=== PATIENT | male | born 1940 | race Hispanic/Latino ===

== ENCOUNTER 2018-01-21 05:51 | Day surgery (SDC) | payer MEDICARE ==
[2018-01-21] MEDS ORDERED: NACL 0.9% 1000 ML 1,000 ML IV SCH (06:00)
[2018-01-21] MEDS ORDERED: ANCEF/STERILE WATER 2 GM/20 ML 2 GM/20 ML SYRINGE IV NR (06:00)
[2018-01-21] MEDS ORDERED: PROTAMINE SULFATE ONE (06:25)
[2018-01-21] MEDS ORDERED: MARCAINE 0.5% 30 ML INFILTRATI ONE (06:25)
[2018-01-21] MEDS ORDERED: XYLOCAINE 1%/ EPI 1:100,000 INFILTRATI ONE (06:25)
[2018-01-21] MEDS ORDERED: HEPARIN 10,000 UNITS/10 ML ONE (06:25)
[2018-01-21] MEDS ORDERED: NACL 0.9% 500 ML 500 ML ONE (06:25)
[2018-01-21] MEDS ORDERED: SODIUM BICARBONATE ONE (06:25)
[2018-01-21 07:08] LABS: Basophils % (Auto) 0.7 % (0.0-1.8); Eosinophils # (Auto) 0.2 K/mm3 (0.0-0.4); Eosinophils % (Auto) 4.4 % (0.0-4.3); Hematocrit 32.9 % (35.5-45.6); Hemoglobin 11.4 gm/dl (11.8-15.2); Lymphocytes # (Auto) 0.9 K/mm3 (1.2-5.4); Mean Corpuscular HGB Conc 35 % (32-34); Mean Corpuscular Hemoglobin 34 pg (28-32); Mean Corpuscular Volume 97 fl (84-94); Monocytes # (Auto) 0.3 K/mm3 (0.0-0.8); Monocytes % (Auto) 6.4 % (0.0-7.3); Platelet Count 194 K/mm3 (140-440); Red Blood Count 3.38 M/mm3 (3.65-5.03); Red Cell Distribution Width 15.2 % (13.2-15.2)
[2018-01-21] MEDS ORDERED: SUBLIMAZE IV PRN (07:46)
[2018-01-21] MEDS ORDERED: ZOFRAN IV PRN (07:46)
--- NOTE | 2018-01-21 07:46 | Anesthesia Day of Surgery ---
Anesthesia Day of Surgery - Day of Surgery Patient Examined: Yes Patient H&P Reviewed: Yes Patient is NPO: Yes
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
[2018-01-21] MEDS ORDERED: HEPARIN 10,000 UNITS/10 ML 2,000 UNIT in NACL 0.9% 500 ML 500 ML IR ONE (08:14)
[2018-01-21] MEDS ORDERED: NACL 0.9% 500 ML IV ONE (09:14)
[2018-01-21] MEDS ORDERED: NACL 0.9% IR ONE (09:14)
[2018-01-21] MEDS ORDERED: MARCAINE 0.25% INFILTRATI ONE (09:14)
[2018-01-21] MEDS ORDERED: MARCAINE 0.5% INFILTRATI ONE (09:14)
[2018-01-21] MEDS ORDERED: HEPARIN 10,000 UNITS/10 ML IV ONE (09:14)
--- NOTE | 2018-01-21 10:34 | Operative Report ---
Operative Report Operative Report: Operative note: Date: 01/21/2018 Preoperative diagnosis: CKD 5 with need of HD initiation Postoperative diagnosis: Same. Operation: creation of left Oly AV fistula Surgeon: Kourtney Briggs. Asst.: None Anesthesia: Gen. EBL: Minimal Findings: Good size radial artery, no plaque Indications: 77-year-old gentleman is in need of dialysis to be started shortly. He was scheduled for creation of permanent access. Vein mapping was performed and showed good size cephalic vein throughout. Patient was explained the risks, benefits and alternatives of procedure, he agreed and signed informed consent. Operative details: The ultrasound was performed identifying cephalic vein. It was compressible is good size throughout its length from the wrist level. His cephalic vein was adequate distance from radial artery. It was necessary to perform 2 incisions separately was, I'll cephalic vein toward the radial artery. Those were marked. Incision was made using 15 blade initially over marked area of distal cephalic vein. It was carried down with electrocautery until long segment of cephalic vein dissected. There was no branches identified. Next incision was made over radial artery. It was carried down with electrocautery Cephalic vein was transected distally and was ligated distally with 3-0 silk. It was irrigated with heparinized saline with olive-tipped syringe. It was tunneled using Salud clamp toward the artery and flushed with heparin again. Vein was open to create large area for anastomosis. Proximally it was controlled with his bulldog. Patient was heparinozed. Distal and proximal control for radial artery was gained with vessel loops. Arteriotomy was created with 11 blade and extended with Collier scissors. Anastomosis was created was running 6-0 Prolene. When the artery was unclamped was identified good arterial pulse and thrill in the cephalic vein. Hemostasis was achieved with electrocautery and wound was closed in 2 layers with 3-0 Vicryl and 4-0 Monocryl. Dermabond glue applied. Needle and sponge counts were correct 2. Patient tolerated procedure well and was transferred to PACU in stable condition.
--- NOTE | 2018-01-21 10:38 | Short Stay Summary ---
Short Stay Documentation Date of service: 01/21/18 - History H&P: obtained from office - Allergies and Medications Current Medications: Allergies No Known Allergies Allergy (Verified 02/20/13 07:01) Home Medications Medication Instructions Recorded Confirmed Last Taken Type Aspirin [Aspirin TAB] 325 mg PO QDAY 02/20/13 01/21/18 01/20/18 History Simvastatin 20 mg PO QDAY 02/20/13 01/21/18 01/20/18 History Finasteride [Proscar] 5 mg PO DAILY 04/02/17 01/21/18 01/20/18 History Amiodarone [Cordarone 200 MG TAB] 100 mg PO QDAY 01/14/18 01/21/18 01/20/18 History Furosemide [Lasix TAB] 20 mg PO QDAY 01/14/18 01/21/18 01/20/18 History NIFEdipine [Nifedipine ER] 30 mg PO BID 01/14/18 01/21/18 01/21/18 04:30 History Oxybutynin [Ditropan] 5 mg PO TID 01/14/18 01/21/18 01/20/18 History Pantoprazole [Protonix] 40 mg PO QDAY 01/14/18 01/21/18 01/20/18 History Lactulose 15 ml PO PRN PRN 01/21/18 01/21/18 01/19/18 History Active Medications Fentanyl (Sublimaze) 50 mcg IV Q5MIN PRN PRN Reason: Pain , Severe (7-10) Stop: 01/21/18 23:59 Cefazolin Sodium (Ancef/Sterile Water 2 Gm/20 Ml) 2 gm in 20 mls @ 80 mls/hr IV PREOP NR; Protocol Stop: 01/21/18 23:59 Sodium Chloride (Nacl 0.9% 1000 Ml) 1,000 mls @ 42 mls/hr IV DIRECT NIKI Last Admin: 01/21/18 06:50 Dose: 42 mls/hr Ondansetron HCl (Zofran) 4 mg IV ONCE PRN PRN Reason: Nausea And Vomiting - Physical exam Lungs: Clear to auscultation Heart: Murmur Rectal Exam: deferred Extremities: pulses intact - Brief post op/procedure progress note Date of procedure: 01/21/18 Pre-op diagnosis: CKD 5 in need of initiation of HD in the near future Post-op diagnosis: same Procedure: creation of left oleg AVF Anesthesia: GETA Findings: good radial artery, no plaque Surgeon: BRAYAN CLIFTON Estimated blood loss: minimal Pathology: none Condition: stable - Disposition Condition at discharge: Good Disposition: DC-01 TO HOME OR SELFCARE Short Stay Discharge Plan Diet: renal Wound: open to air Special Instructions: no heavy lifting Follow up with: OLGA LIDIA MILLER MD [Primary Care Provider] - 7 Days BRAYAN CLIFTON DO [Staff Physician] - 10 Days Prescriptions: HYDROcodone/APAP 5-325 [[place] 5/325] 1 each PO Q6HR PRN #14 tablet PRN Reason: Pain , Severe (7-10)
[2018-01-21 11:46] VITALS: BP 126/66
[2018-01-21] MEDS ORDERED: SUBLIMAZE ONE (13:34)
[2018-01-21] MEDS ORDERED: DIPRIVAN 10 MG/ML IV ONE (13:34)
[2018-01-21] MEDS ORDERED: XYLOCAINE MPF 2% ONE (13:35)
[2018-01-21] MEDS ORDERED: NEO SYNEPHRINE/NS Syringe(OR USE) IV ONE (13:35)
[2018-01-21] MEDS ORDERED: ZOFRAN ONE (13:35)
== END 2018-01-21 12:17 | disposition home or self-care (01) ==
LOC: OR 05:51
PROVIDERS: ATTEND Surgery Vascular Surgery
DX: I12.0 Hypertensive chronic kidney disease with stage 5 chronic kidney disease or end stage renal disease (principal); N18.6 End stage renal disease; I48.2 Chronic atrial fibrillation; E78.00 Pure hypercholesterolemia, unspecified; K21.9 Gastro-esophageal reflux disease without esophagitis; M17.10 Unilateral primary osteoarthritis, unspecified knee; I25.10 Atherosclerotic heart disease of native coronary artery without angina pectoris; Z79.82 Long term (current) use of aspirin; Z79.899 Other long term (current) drug therapy; Z99.2 Dependence on renal dialysis; Z98.42 Cataract extraction status, left eye; Z72.89 Other problems related to lifestyle; Z96.651 Presence of right artificial knee joint; Z87.891 Personal history of nicotine dependence; Z98.890 Other specified postprocedural states
CPT/HCPCS: 36415; 36821; 80048; 85025; J0690; J1644; J2370; J2405; J2704; J3010; J7030; J7040; J2720

== ENCOUNTER 2018-02-12 19:39 | Inpatient (IN) | payer MEDICARE ==
[2018-02-12 21:09] LABS: Basophils % (Auto) 0.1 % (0.0-1.8); Eosinophils % (Auto) 0.1 % (0.0-4.3); Hematocrit 31.9 % (35.5-45.6); Hemoglobin 11.2 gm/dl (11.8-15.2); Lymphocytes # (Auto) 0.3 K/mm3 (1.2-5.4); Lymphocytes % (Auto) 3.2 % (13.4-35.0); Mean Corpuscular HGB Conc 35 % (32-34); Mean Corpuscular Hemoglobin 34 pg (28-32); Mean Corpuscular Volume 98 fl (84-94); Monocytes # (Auto) 0.5 K/mm3 (0.0-0.8); Monocytes % (Auto) 6.6 % (0.0-7.3); Red Blood Count 3.26 M/mm3 (3.65-5.03); Red Cell Distribution Width 16.2 % (13.2-15.2)
[2018-02-12 21:25] LABS: Albumin 3.3 g/dL (3.9-5); Calcium 8.8 mg/dL (8.4-10.2)
[2018-02-12 21:50] LABS: Platelet Count 87 K/mm3 (140-440)
[2018-02-12] MEDS ORDERED: NACL 0.9% 1000 ML 1,000 ML IV ONE (22:12)
--- NOTE | 2018-02-12 22:50 | Emergency Department Report ---
- General Chief complaint: Fall Stated complaint: WEAKNESS,COUGH Time Seen by Provider: 02/12/18 21:51 Source: patient, old records reviewed Mode of arrival: Ambulatory Limitations: Physical Limitation - History of Present Illness Initial comments: 77-year-old male with a history of chronic renal insufficiency (not currently on hemodialysis), hypertension, GERD, and previous atrial fibrillation in the hospital with generalized weakness and 2 falls today. Patient states his knees gave out secondary to weakness and he fell down to the floor. He was able to break his fall and denies head injury or LOC. He scuffed his knees and face while trying to get off the floor. He denies headache, chest pain, shortness of breath, abdominal pain, nausea, vomiting, diarrhea, dysuria, or change in urine output. Patient drinks daily. In December the AV fistula was placed in preparation for dialysis. He denies alcohol use, excessive Tylenol intake, or history of liver disease. Marketing Performance Analyst: Dr. Concepcion. Gardening Instructor: Dr. Juan Zurita, patient cannot recall the name of his PMD. Patient presents with a Sparks due to chronic urinary retention. - Related Data Home Medications Medication Instructions Recorded Confirmed Last Taken Aspirin [Aspirin TAB] 325 mg PO QDAY 02/20/13 01/21/18 01/20/18 Simvastatin 20 mg PO QDAY 02/20/13 01/21/18 01/20/18 Finasteride [Proscar] 5 mg PO DAILY 04/02/17 01/21/18 01/20/18 Amiodarone [Cordarone 200 MG TAB] 100 mg PO QDAY 01/14/18 01/21/18 01/20/18 Furosemide [Lasix TAB] 20 mg PO QDAY 01/14/18 01/21/18 01/20/18 NIFEdipine [Nifedipine ER] 30 mg PO BID 01/14/18 01/21/18 01/21/18 04:30 Oxybutynin [Ditropan] 5 mg PO TID 01/14/18 01/21/18 01/20/18 Pantoprazole [Protonix TAB] 40 mg PO QDAY 01/14/18 01/21/18 01/20/18 Lactulose 15 ml PO PRN PRN 01/21/18 01/21/18 01/19/18 Previous Rx's Medication Instructions Recorded Last Taken Type HYDROcodone/APAP 5-325 [[place] 1 each PO Q6HR PRN #14 tablet 01/21/18 Unknown Rx 5/325] Allergies Allergy/AdvReac Type Severity Reaction Status Date / Time No Known Allergies Allergy Verified 02/20/13 07:01 ED Review of Systems ROS: Stated complaint: WEAKNESS,COUGH Other details as noted in HPI Comment: All other systems reviewed and negative ED Past Medical Hx - Past Medical History Hx Hypertension: Yes (HL) Hx Heart Attack/AMI: No Hx Diabetes: No Hx Deep Vein Thrombosis: No Hx Pulmonary Embolism: No Hx GERD: Yes Hx Renal Disease: Yes (CKD Stage 5) Hx Sickle Cell Disease: No 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) Hx Asthma: No Hx COPD: No Hx Tuberculosis: No Hx HIV: No Additional medical history: A Fib - Surgical History Hx Coronary Stent: No Hx Pacemaker: No Hx Internal Defibrillator: No Additional Surgical History: Right Knee Replacement, Left arm Fistula - Social History Smoking Status: Never Smoker Substance Use Type: None - Medications Home Medications: Home Medications Medication Instructions Recorded Confirmed Last Taken Type Aspirin [Aspirin TAB] 325 mg PO QDAY 02/20/13 01/21/18 01/20/18 History Simvastatin 20 mg PO QDAY 02/20/13 01/21/18 01/20/18 History Finasteride [Proscar] 5 mg PO DAILY 04/02/17 01/21/18 01/20/18 History Amiodarone [Cordarone 200 MG TAB] 100 mg PO QDAY 01/14/18 01/21/18 01/20/18 History Furosemide [Lasix TAB] 20 mg PO QDAY 01/14/18 01/21/18 01/20/18 History NIFEdipine [Nifedipine ER] 30 mg PO BID 01/14/18 01/21/18 01/21/18 04:30 History Oxybutynin [Ditropan] 5 mg PO TID 01/14/18 01/21/18 01/20/18 History Pantoprazole [Protonix TAB] 40 mg PO QDAY 01/14/18 01/21/18 01/20/18 History HYDROcodone/APAP 5-325 [[place] 1 each PO Q6HR PRN #14 tablet 01/21/18 Unknown Rx 5/325] Lactulose 15 ml PO PRN PRN 01/21/18 01/21/18 01/19/18 History ED Physical Exam - General Limitations: Physical Limitation - Other Other exam information: General: No limitations, patient is alert in no acute distress Head exam: normocephalic, abrasions to face without bony tenderness Eyes exam: Normal appearance, pupils equal reactive to light, extraocular movements intact ENT: Moist mucous membrane, normal oropharynx Neck exam: Normal inspection, full range of motion, no meningismus nontender Respiratory exam: Clear to auscultation bilateral, no wheezes, rales, crackles Cardiovascular: Normal rate and rhythm, normal heart sounds Abdomen: Soft, nondistended, and nontender, with normal bowel sounds, no rebound, or guarding Extremity: Full range of motion, abrasions to bilateral knees with full range of motion and no tenderness on palpation. Full range of motion of all extremities without pain. Left distal forearm with AV fistula with palpable thrill Back: Normal Inspection, full range of motion, no tenderness Neurologic: Alert, oriented x3, cranial nerves intact, no motor or sensory deficit, [id number] function intact. Skin: Warm, dry, intact - Assessment Assessment Interval: Baseline - Level of Consciousness 1a. Level of Consciousness: alert/keenly responsive - LOC Questions 1b. LOC Questions: answers both correctly - LOC Command 1c. LOC Commands: performs tasks correctly - Best Gaze 2. Best Gaze: normal - Visual 3. Visual: no visual loss - Facial Palsy 4. Facial Palsy: normal symmetrical movement - Motor Arm 5b. Motor Arm Right: no drift 5a. Motor Arm Left: no drift - Motor Leg 6a. Motor Leg Left: no drift 6b. Motor Leg Right: no drift - Limb Ataxia 7. Limb Ataxia: absent - Sensory 8. Sensory: normal - Best Language 9. Best Language: no aphasia - Dysarthria 10. Dysarthria: intubated or other barrier - Extinction and Inattention 11. Extinction/Inattention: no abnormality - Scoring Total Score: 0 Stroke Severity: No Stroke Symptoms ED Course Vital Signs 02/12/18 20:11 Temperature 98.6 F Pulse Rate 71 Respiratory 16 Rate Blood Pressure 96/51 O2 Sat by Pulse 97 Oximetry ED Medical Decision Making - Lab Data Result diagrams: 02/12/18 20:56 02/12/18 20:56 Lab Results 02/12/18 02/12/18 02/12/18 Range/Units 20:56 20:56 22:14 WBC 8.2 (4.5-11.0) K/mm3 RBC 3.26 L (3.65-5.03) M/mm3 Hgb 11.2 L (11.8-15.2) gm/dl Hct 31.9 L (35.5-45.6) % MCV 98 H (84-94) fl MCH 34 H (28-32) pg MCHC 35 H (32-34) % RDW 16.2 H (13.2-15.2) % Plt Count 87 L (140-440) K/mm3 Lymph % (Auto) 3.2 L (13.4-35.0) % [place] % (Auto) 6.6 (0.0-7.3) % Eos % (Auto) 0.1 (0.0-4.3) % Baso % (Auto) 0.1 (0.0-1.8) % Lymph # 0.3 L (1.2-5.4) K/mm3 [place] # 0.5 (0.0-0.8) K/mm3 Eos # 0.0 (0.0-0.4) K/mm3 Baso # 0.0 (0.0-0.1) K/mm3 Seg Neutrophils % 90.0 H (40.0-70.0) % Seg Neutrophils # 7.4 (1.8-7.7) K/mm3 Sodium 133 L (137-145) mmol/L Potassium 4.0 (3.6-5.0) mmol/L Chloride 94.1 L (98-107) mmol/L Carbon Dioxide 23 (22-30) mmol/L Anion Gap 20 mmol/L BUN 63 H (9-20) mg/dL Creatinine 5.6 H (0.8-1.5) mg/dL Estimated GFR 10 ml/min BUN/Creatinine Ratio 11 % Glucose 112 H (75-100) mg/dL Calcium 8.8 (8.4-10.2) mg/dL Total Bilirubin 1.00 (0.1-1.2) mg/dL AST 322 H (5-40) units/L ALT 61 H (7-56) units/L Alkaline Phosphatase 84 (35-129) units/L Total Protein 6.9 (6.3-8.2) g/dL Albumin 3.3 L (3.9-5) g/dL Albumin/Globulin Ratio 0.9 % Urine Color [place] (Yellow) Urine Turbidity Turbid (Clear) Urine pH 5.0 (5.0-7.0) Ur Specific [place] 1.008 (1.003-1.030) Urine Protein 100 mg/dl (Negative) mg/dL Urine Glucose (UA) Neg (Negative) mg/dL Urine Ketones Neg (Negative) mg/dL Urine Blood Lg (Negative) Urine Nitrite Neg (Negative) Urine Bilirubin Neg (Negative) Urine Urobilinogen < 2.0 (<2.0) mg/dL Ur Leukocyte Esterase Lg (Negative) Urine WBC (Auto) > 182.0 H (0.0-6.0) /HPF Urine RBC (Auto) 12.0 (0.0-6.0) /HPF Urine Bacteria (Auto) 2+ (Negative) /HPF Urine WBC Clumps 3+ /HPF - EKG Data -: EKG Interpreted by Ny EKG shows normal: sinus rhythm, axis (qrs 11), QRS complexes (qrsd 105), ST-T waves (no STEMI or ST elevation ME) Rate: normal (68) - EKG Data When compared to previous EKG there are: no significant change (parents in 2012) - Radiology Data Radiology results: report reviewed FINAL REPORT PROCEDURE: CT HEAD/BRAIN WO CON TECHNIQUE: Computerized tomography of the head was performed without contrast material. HISTORY: falls, generalized weakness, thrombocytopenia COMPARISON: No prior studies are available for comparison. FINDINGS: Skull and scalp: There are small craniotomy defects in the bilateral temporal bones. There has been previous vascular clipping in the [place] of [place] region bilaterally.. Paranasal sinuses: Normal. Ventricles and subarachnoid spaces: Normal. Cerebrum: Mild atrophy is noted. Slight encephalomalacia in the left frontal lobe is identified. No evidence of acute intracranial hemorrhage, hematoma or infarction. No midline displacement.. Cerebellum and brainstem: No evidence of hemorrhage, acute infarction or mass. Vasculature: Normal. Comments: None. IMPRESSION: There is no evidence of an acute intracranial process. Mild atrophy is noted. There is slight encephalomalacia in the left frontal lobe. Previous vascular clipping is noted. - Medical Decision Making Generalized weakness Positive orthostatic vital signs: IV fluids initiated Positive UTI (urine sent after Sparks change): Rocephin initiated. Cultures pending CT head without acute findings Nonfocal exam Chronic renal insufficiency Normal potassium and bicarbonate Elevated LFTs and thrombocytopenia New-onset Cause unclear Patient will be admitted to the hospital further workup and evaluation Hospitalist informed - Differential Diagnosis dehydration, anemia, infection, ICH Critical Care Time: No Critical care attestation.: If time is entered above; I have spent that time in minutes in the direct care of this critically ill patient, excluding procedure time. ED Disposition Clinical Impression: Generalized weakness, UTI (urinary tract infection), Orthostatic hypotension, Thrombocytopenia, Elevated LFTs, Skin abrasion, Chronic renal failure, Sparks catheter in place prior to arrival Disposition: OP ADMIT IP TO THIS HOSP Is pt being admited?: Yes Condition: Stable Time of Disposition: 00:21 (Dr Hughes/hosp)
[2018-02-12 22:55] LABS: Bacteria,Urine 2+ /HPF (Negative); Bilirubin,Urine NEG (Negative); Blood,Urine LG (Negative); Color,Urine Amber (Yellow); Urobilinogen,Urine < 2.0 mg/dL (<2.0)
[2018-02-12 22:57] LABS: WBC,Urine > 182.0 /HPF (0.0-6.0)
--- NOTE | 2018-02-12 23:38 | Cat Scan Report ---
FINAL REPORT PROCEDURE: CT HEAD/BRAIN WO CON TECHNIQUE: Computerized tomography of the head was performed without contrast material. HISTORY: falls, generalized weakness, thrombocytopenia COMPARISON: No prior studies are available for comparison. FINDINGS: Skull and scalp: There are small craniotomy defects in the bilateral temporal bones. There has been previous vascular clipping in the [place] of [place] region bilaterally.. Paranasal sinuses: Normal. Ventricles and subarachnoid spaces: Normal. Cerebrum: Mild atrophy is noted. Slight encephalomalacia in the left frontal lobe is identified. No evidence of acute intracranial hemorrhage, hematoma or infarction. No midline displacement.. Cerebellum and brainstem: No evidence of hemorrhage, acute infarction or mass. Vasculature: Normal. Comments: None. IMPRESSION: There is no evidence of an acute intracranial process. Mild atrophy is noted. There is slight encephalomalacia in the left frontal lobe. Previous vascular clipping is noted.
[2018-02-12] MEDS ORDERED: ROCEPHIN/NS 1 GM/50 ML 1 GM/50 ML BAG IV ONE (23:50)
[2018-02-13] MEDS ORDERED: TYLENOL PO PRN (01:40)
[2018-02-13] MEDS ORDERED: ZOFRAN IV PRN (01:41)
[2018-02-13 06:53] LABS: Hematocrit 33.1 % (35.5-45.6); Hemoglobin 11.5 gm/dl (11.8-15.2); Mean Corpuscular HGB Conc 35 % (32-34); Mean Corpuscular Hemoglobin 34 pg (28-32); Mean Corpuscular Volume 98 fl (84-94); Red Blood Count 3.38 M/mm3 (3.65-5.03); Red Cell Distribution Width 16.3 % (13.2-15.2)
[2018-02-13 06:55] LABS: Platelet Count 80 K/mm3 (140-440)
[2018-02-13 07:12] LABS: Creatine Kinase MB 20.1 ng/mL (0.0-4.0)
[2018-02-13 07:17] LABS: Albumin 2.8 g/dL (3.9-5)
--- NOTE | 2018-02-13 07:29 | History and Physical Report ---
CHIEF COMPLAINT: Weakness, other complaint includes falling down. HISTORY OF PRESENT ILLNESS: The patient is a 77-year-old man who states he felt very weak and his legs gave up and he fell. The patient said he fell twice yesterday. There is no history of shortness of breath, though the patient said he occasionally has chest discomfort. There is no history of fever or chills. No history of nausea or vomiting. The patient presented to the Emergency Room. There is also no history of change in mental status. The patient also denies history of headache. PAST MEDICAL HISTORY: Pertinent for hypertension, gastroesophageal reflux disease, chronic kidney disease stage V, arthritis, atrial fibrillation. PAST SURGICAL HISTORY: Pertinent for right knee replacement surgery, left arm dialysis, fistula placement. FAMILY HISTORY: Noncontributory. SOCIAL HISTORY: The patient lives with family. Does not smoke, does not drink alcohol, and does not use illicit drugs. MEDICATIONS: The patient is on aspirin 325 mg by mouth daily, simvastatin 20 mg by mouth daily, Proscar (finasteride) 5 mg by mouth daily, amiodarone 100 mg by mouth daily, furosemide 20 mg by mouth daily, nifedipine extended release 30 mg by mouth twice daily, Ditropan (oxybutynin) 5 mg by mouth 3 times daily, Protonix 40 mg by mouth daily, [place] 5/325 mg daily, lactulose 15 mL by mouth as needed for high level of ammonia. ALLERGIES: There are no known drug allergies. REVIEW OF SYSTEMS: CONSTITUTIONAL: There is no fever, no chills, no diaphoresis. HEENT: There is no headache or sore throat. CARDIOVASCULAR SYSTEM: There is no chest pain or orthopnea. RESPIRATORY SYSTEM: There is no shortness of breath or cough. GASTROINTESTINAL SYSTEM: There is no nausea, no vomiting. No abdominal pain, diarrhea or constipation. NEUROLOGICAL SYSTEM: Generalized weakness present, frequent fall present, no altered mental status. MUSCULOSKELETAL SYSTEM: There is no joint pain or swelling. DERMATOLOGICAL SYSTEM: There is no skin rash or itching. GENITOURINARY SYSTEM: There is no dysuria, hematuria or flank pain. Rest of system review is normal. PHYSICAL EXAMINATION: GENERAL: At the time of exam, the patient was found to be alert, oriented x 3 and not in acute distress these. VITAL SIGNS: At the time of initial presentation show temperature of 98.6 degrees Fahrenheit, pulse of 71, respirations 16, blood pressure 96/51, O2 sat of 97% on room air. HEENT: Showed pupils to be equal, round, reactive to light and accommodating. Extraocular muscles are intact. NECK: Supple with no JVD or carotid bruit. CARDIOVASCULAR SYSTEM: Showed normal first and second heart sounds with no gallops or murmurs. RESPIRATORY SYSTEM: Shows good air entry on both sides of the lungs with no abnormal breath sounds. GASTROINTESTINAL SYSTEM: Shows abdomen to be full, soft, nontender with no organomegaly or rigidity. NEUROLOGIC: Shows the patient to be weak in the lower extremities with no loss of sensory function and the normal tendon reflexes. MUSCULOSKELETAL SYSTEM: Shows no joint swelling or tenderness. DERMATOLOGICAL SYSTEM: Shows no skin rash. GENITOURINARY: Showing no costovertebral angle tenderness. PERTINENT IMAGING STUDIES: The patient had a CT of the head without contrast done that shows no acute intracranial process. There is finding of mild atrophy and slight encephalomalacia in the left frontal lobe with CT showing previous vascular clipping. LAB RESULTS: The patient has CBC done with low hemoglobin of 11.2 and low hematocrit of 31.9. CBC differential showing high segmented neutrophil. The patient's chemistry shows low sodium of 133 and low chloride of 94.1 with normal potassium level and elevated BUN of 63 and elevated creatinine of 5.6 consistent with the patient's chronic kidney stage V. The patient's liver transaminases show high AST of 322 and high ALT of 61 with low albumin of 3.3. The patient's urinalysis shows turbid karine urine with large leukocyte esterase and high urine wbc of greater than 182 and 2+ urine bacteria. DIAGNOSES: 1. Weakness with frequent fall. 2. Urinary tract infection. 3. Elevated liver function test. 4. Thrombocytopenia with platelet of about 87,000. 5. Chronic kidney disease, stage V. PLAN OF ACTION: 1. The patient will be admitted to medical surgical floor. 2. The patient will have complete echocardiogram done in the morning and we will also have cardiac enzymes checked every 6 hours x 2 level. 3. The patient will have Nephrology consult with Dr. Ketan Billy who has seen patient in the past for chronic kidney disease. 4. The patient will have CBC and LFT checked in the morning. 5. The patient will be on IV ceftriaxone 1 gram daily for treatment of UTI. 6. The patient will be on p.r.n. medications like Tylenol for fever and headache and Zofran for nausea and vomiting and will be on his medications as shown in the medication reconciliation section. JOB# [id number] OCN/NTS MTDD
[2018-02-13 07:35] LABS: Bilirubin,Direct 0.5 mg/dL (0-0.2); Chol/HDL Ratio 10.3 %
[2018-02-13 07:57] LABS: Basophils % (Manual) 0 % (0.0-1.8); Eosinophils % (Manual) 0 % (0.0-4.3); Total Cells Counted 100
[2018-02-13 07:59] LABS: Poikilocytosis Few
[2018-02-13] MEDS ORDERED: NON-FORMULARY (Simvastatin [Simvastatin] 20 MG) PO SCH (10:00)
[2018-02-13] MEDS: ASPIRIN PO SCH (12:14)
[2018-02-13] MEDS: PROSCAR PO SCH (12:14)
[2018-02-13] MEDS: DITROPAN PO SCH ×3 (12:14→22:18)
[2018-02-13] MEDS: PROTONIX PO SCH (12:15)
[2018-02-13] MEDS: CORDARONE PO SCH (12:16)
[2018-02-13] MEDS: NACL 0.9% 1000 ML 1,000 ML IV SCH (12:29)
[2018-02-13 13:23] LABS: Creatine Kinase MB 13.5 ng/mL (0.0-4.0)
--- NOTE | 2018-02-13 14:08 | Event Note ---
Date: 02/13/18 Patient was seen and evaluated as a bedside. Patient admitted earlier this morning. Continue management per H&P.
--- NOTE | 2018-02-13 17:30 | Consultation ---
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 pt also states that he has been experiencing cough, chills, chest tightness last week. CT head showed no acute intracranial process, ECHO showed normal LVSF. Labs showed elevated CPK > 9000 along with elevated BUN/Cr at 63/5.6mg/dl, for which renal consult is requested. UA was consistent with UTI and pt was initiated on IV rocephin. Pt denies recent NSAIDS, IV contrast exposure. L radiocephalic AVF was placed on 01/21/18 for preparation for future HD. Past History Past Medical History: atrial fib, hypertension, renal failure Past Surgical History: total knee replacement (Right), Other (AVF placement ) Social history: denies: smoking, alcohol abuse, prescription drug abuse, IV drug use Family history: no significant family history Medications and Allergies Allergies Allergy/AdvReac Type Severity Reaction Status Date / Time No Known Allergies Allergy Verified 02/20/13 07:01 Home Medications Medication Instructions Recorded Confirmed Last Taken Type Aspirin [Aspirin TAB] 325 mg PO QDAY 02/20/13 02/13/18 02/12/18 08:00 History Simvastatin 20 mg PO QDAY 02/20/13 02/13/18 02/12/18 08:00 History Finasteride [Proscar] 5 mg PO DAILY 04/02/17 02/13/18 02/12/18 08:00 History Amiodarone [Cordarone 200 MG TAB] 100 mg PO QDAY 01/14/18 02/13/18 02/12/18 08: 00 History Furosemide [Lasix TAB] 20 mg PO QDAY 01/14/18 02/13/18 02/12/18 20:00 History NIFEdipine [Nifedipine ER] 30 mg PO BID 01/14/18 02/13/18 02/12/18 08:00 History Oxybutynin [Ditropan] 5 mg PO TID 01/14/18 02/13/18 02/13/18 00:42 History Pantoprazole [Protonix TAB] 40 mg PO QDAY 01/14/18 02/13/18 02/12/18 08:00 History Active Meds: Active Medications Acetaminophen (Tylenol) 650 mg PO Q4H PRN PRN Reason: Fever >101 Amiodarone HCl (Cordarone) 100 mg PO QDAY [facility] Last Admin: 02/13/18 12:16 Dose: Not Given Aspirin (Aspirin) 325 mg PO QDAY [facility] Last Admin: 02/13/18 12:14 Dose: 325 mg Finasteride (Proscar) 5 mg PO DAILY [facility] Last Admin: 02/13/18 12:14 Dose: 5 mg Ceftriaxone Sodium (Rocephin/Ns 1 Gm/50 Ml) 1 gm in 50 mls @ 100 mls/hr IV Q24HR@2200 [facility]; Protocol Sodium Chloride (Nacl 0.9% 1000 Ml) 1,000 mls @ 75 mls/hr IV DIRECT [facility] Last Admin: 02/13/18 12:29 Dose: 75 mls/hr Ondansetron HCl (Zofran) 4 mg IV Q8H PRN PRN Reason: Nausea And Vomiting Oxybutynin Chloride (Ditropan) 5 mg PO TID [facility] Last Admin: 02/13/18 14:46 Dose: Not Given Pantoprazole Sodium (Protonix) 40 mg PO QDAY [facility] Last Admin: 02/13/18 12:15 Dose: 40 mg Pravastatin Sodium (Pravachol) 40 mg PO QHS [facility] Review of Systems All systems: negative Constitutional: weakness Cardiovascular: syncope, lightheadedness, shortness of breath, dyspnea on exertion Respiratory: cough Genitourinary Male: dysuria Exam - Vital Signs Vital signs: Vital Signs Temp Pulse Resp BP Pulse Ox 98.6 F 69 14 85/50 94 02/12/18 19:56 02/12/18 19:56 02/12/18 19:56 02/12/18 19:56 02/12/18 19:56 - General Appearance General appearance: well-developed, well-nourished, appears stated age EENT: ATNC, PERRL, other (mutiple facial bruises ) Neck: Present: neck supple Respiratory: Clear to Ascultation Heart: regular, S1S2 Gastrointestinal: Present: normoactive bowel sounds Integumentary: no rash, other (no edema, LUE radiocephalic AVF with +thrill/ bruit) Neurologic: no focal deficit, alert and oriented x3, strength 5/5, CN 3-12 intact Psychiatric: mood/affect appropriate, cooperative Results - Lab Results 02/13/18 06:04 02/12/18 20:56 Most recent lab results Calcium 8.8 mg/dL (8.4-10.2) 02/12/18 20:56 Magnesium 2.20 mg/dL (1.7-2.3) 02/13/18 06:04 Laboratory Tests 02/12/18 02/13/18 02/13/18 22:14 06:04 12:01 Magnesium 2.20 Total Bilirubin 0.70 Direct Bilirubin 0.5 H Indirect Bilirubin 0.3 AST 289 H ALT 65 H Alkaline Phosphatase 86 Total Creatine Kinase 9691 H 6584 H CK-MB (CK-2) 20.1 H 13.5 H Troponin T 0.037 H Albumin 2.8 L Albumin/Globulin Ratio 0.8 Triglycerides 157 H LDL Cholesterol Direct 41 L Cholesterol/HDL Ratio 10.30 Urine Color Nayeli Urine Turbidity Turbid Urine pH 5.0 Ur Specific [place] 1.008 Urine Protein 100 mg/dl Urine Glucose (UA) Neg Urine Ketones Neg Urine Blood Lg Urine Nitrite Neg Urine Bilirubin Neg Urine Urobilinogen < 2.0 Ur Leukocyte Esterase Lg Urine WBC (Auto) > 182.0 H Urine RBC (Auto) 12.0 Urine Bacteria (Auto) 2+ Urine WBC Clumps 3+ Assessment and Plan - Patient Problems (1) Acute kidney injury Current Visit: Yes Status: Acute Plan to address problem: likely due to pre-renal azotemia in the setting of UTI, acute rhabdomyolysis contributing to VIDHYA. Started IV NS at 75ml/hr. check serial CPKs Avoid nephrotoxins, NSAIDs, IV contrast progressive CKD possible, if renal function continues to decline despite IVF and IV ABXs will assess for initiation of HD D/w Dr Alejo (2) Rhabdomyolysis Current Visit: Yes Status: Acute Plan to address problem: cont IV NS ,check serial CPKs (3) Hypertensive chronic kidney disease with stage 1 through stage 4 chronic kidney disease, or unspecified chronic kidney disease Current Visit: Yes Status: Acute Plan to address problem: BP lower side, hold all BP meds. cont NS at 75ml/hr (4) Chronic kidney disease, stage V Current Visit: Yes Status: Acute Plan to address problem: secondary to biopsy proven hypertensive nephrosclerosis. S/p LUE AVF placement on 01/21/18. cont supportive care for CKD, will assess indication for renal replacement therapy on a daily basis (5) UTI (urinary tract infection) Current Visit: Yes Status: Acute Plan to address problem: cont ABX w/ ceftriaxone (6) Thrombocytopenia Current Visit: Yes Status: Acute Plan to address problem: recommend hematology consultation
[2018-02-13] MEDS: PRAVACHOL PO SCH (22:18)
[2018-02-13] MEDS: ROCEPHIN/NS 1 GM/50 ML 1 GM/50 ML BAG IV SCH (22:19)
[2018-02-14] MEDS: NACL 0.9% 1000 ML 1,000 ML IV SCH ×2 (03:44→17:38)
[2018-02-14 08:11] LABS: Basophils % (Auto) 0.1 % (0.0-1.8); Eosinophils % (Auto) 0.3 % (0.0-4.3); Hematocrit 29.8 % (35.5-45.6); Hemoglobin 10.3 gm/dl (11.8-15.2); Lymphocytes # (Auto) 0.4 K/mm3 (1.2-5.4); Lymphocytes % (Auto) 4.8 % (13.4-35.0); Mean Corpuscular HGB Conc 35 % (32-34); Mean Corpuscular Hemoglobin 34 pg (28-32); Mean Corpuscular Volume 98 fl (84-94); Monocytes # (Auto) 0.4 K/mm3 (0.0-0.8); Monocytes % (Auto) 5.2 % (0.0-7.3); Red Blood Count 3.04 M/mm3 (3.65-5.03)
[2018-02-14 08:19] LABS: Platelet Count 67 K/mm3 (140-440)
[2018-02-14 08:28] LABS: Calcium 7.8 mg/dL (8.4-10.2)
[2018-02-14 09:43] LABS: Iron 15 ug/dL (49-181); Total Iron Binding Capacity 147 mcg/dL (250-450)
--- NOTE | 2018-02-14 09:55 | Progress Note ---
Assessment and Plan - Patient Problems (1) Acute kidney injury Current Visit: Yes Status: Acute Plan to address problem: Acute tubular necrosis secondary to rhabdomyolysis/hypotension. Kidney function improving. Follow up electrolytes and kidney function. (2) Chronic kidney disease, stage V Current Visit: Yes Status: Acute Plan to address problem: Will need to start making arrangements for chronic dialysis even if kidney function improves. (3) Rhabdomyolysis Current Visit: Yes Status: Acute Plan to address problem: CPK improving. Continue volume resuscitation and follow-up result (4) Skin abrasion Current Visit: Yes Status: Acute Plan to address problem: History of falls at home. Physical therapy/Therapy evaluate and treat. Consider placement at subacute rehabilitation on DC (5) Thrombocytopenia Current Visit: Yes Status: Acute Plan to address problem: Follow-up platelet count. Consider hematology evaluation (6) UTI (urinary tract infection) Current Visit: Yes Status: Acute Plan to address problem: Continue antibiotics. Follow up urine culture. (7) Hypotension Current Visit: Yes Status: Acute Plan to address problem: Continue volume repletion. Avoid hypotensive medications. Follow blood pressure (8) Hypokalemia Current Visit: Yes Status: Acute Plan to address problem: Supplement potassium and follow-up level Subjective Date of service: 02/14/18 Principal diagnosis: acute kidney injury superimposed on chronic kidney disease. Interval history: Patient seen lying in bed. He has no complaints. Still weak but "trying to get her energy back" Objective - Exam Narrative Exam: Elderly male lying in bed in no acute distress HEENT: Bruises on his face, pink oral mucous membrane Neck: Supple, no venous distention CVS: S1S2 RRR with no murmur, rub or gallop Chest: Clear to auscultation Abdomen: Protuberant, soft, nontender, no organomegaly, bowel sounds are present Extremities: No edema Neuro: Awake, alert no focal deficits - Vital Signs Vital signs: Vital Signs - 12hr 02/13/18 02/14/18 22:39 06:17 Temperature 98.9 F 97.5 F L Pulse Rate 63 55 L Respiratory 19 16 Rate Blood Pressure 101/53 100/53 O2 Sat by Pulse 92 93 Oximetry - Lab 02/14/18 07:15 02/14/18 07:15 Most recent lab results Calcium 7.8 mg/dL (8.4-10.2) L 02/14/18 07:15 Magnesium 2.20 mg/dL (1.7-2.3) 02/13/18 06:04
[2018-02-14] MEDS: PROTONIX PO SCH (10:56)
[2018-02-14] MEDS: ASPIRIN PO SCH (10:56)
[2018-02-14] MEDS: PROSCAR PO SCH (10:56)
[2018-02-14] MEDS: CORDARONE PO SCH (10:56)
[2018-02-14] MEDS: DITROPAN PO SCH ×3 (13:06→21:14)
--- NOTE | 2018-02-14 13:31 | Event Note ---
Date: 02/14/18 low plt abn LFTs CKD CPK elevated bruises h/o A fib low folate US abdo ordered dictation done -[id number]
--- NOTE | 2018-02-14 14:31 | Progress Note ---
Assessment and Plan Assessment and plan: 77-year-old male with past medical history significant for hypertension, atrial fibrillation, CKD presented to the emergency department for the complaints of fall. Patient said his legs gave up and he fell on the ground and stayed there 45 minutes. Recurrent fall - Physical therapy - Manage underlying cause acute on chronic kidney disease - Secondary to hypotension, rhabdomyolysis - Nephrology is following - Patient has AVF created, and will assess for the need of dialysis. He is not started on dialysis yet Hypotension - On IV fluids - We will monitor Rhabdomyolysis - CK is trending down - Continue IV fluids A. fib - Patient is on amiodarone, rate controlled - Nontender cognition because of recurrent fall UTI - on ceftriaxone Thrombocytopenia - Hematology/Oncology consulted DVT prophylaxis - on SCDs Disposition - Per nephrology History Interval history: Patient was seen and evaluated this morning, patient said he is feeling better today. Hospitalist Physical - Physical exam Narrative exam: Not in cardiopulmonary distress. The patient appeared well nourished and normally developed. Vital signs as documented. Head exam is unremarkable. No scleral icterus . Neck is without jugular venous distension, thyromegaly, or carotid bruits. Lungs are clear to auscultation. Cardiac exam reveals regular rate and Rhythm. Abdominal exam reveals normal bowel sounds, no masses, no organomegaly and no aortic enlargement. Extremities are nonedematous and both femoral and pedal pulses are normal. MANAGER SUMMER: Alert and oriented 3. No focal weakness. - Constitutional Vitals: Temp Pulse Resp BP Pulse Ox 98.8 F 53 L 20 97/48 92 02/14/18 12:12 02/14/18 12:12 02/14/18 12:12 02/14/18 12:12 02/14/18 12:12 Results - Labs CBC & Chem 7: 02/14/18 07:15 02/14/18 07:15 Labs: Laboratory Last Values WBC 7.7 K/mm3 (4.5-11.0) 02/14/18 07:15 RBC 3.04 M/mm3 (3.65-5.03) L 02/14/18 07:15 Hgb 10.3 gm/dl (11.8-15.2) L 02/14/18 07:15 Hct 29.8 % (35.5-45.6) L 02/14/18 07:15 MCV 98 fl (84-94) H 02/14/18 07:15 MCH 34 pg (28-32) H 02/14/18 07:15 MCHC 35 % (32-34) H 02/14/18 07:15 RDW 16.0 % (13.2-15.2) H 02/14/18 07:15 Plt Count 67 K/mm3 (140-440) L 02/14/18 07:15 Lymph % (Auto) 4.8 % (13.4-35.0) L 02/14/18 07:15 [place] % (Auto) 5.2 % (0.0-7.3) 02/14/18 07:15 Eos % (Auto) 0.3 % (0.0-4.3) 02/14/18 07:15 Baso % (Auto) 0.1 % (0.0-1.8) 02/14/18 07:15 Lymph # 0.4 K/mm3 (1.2-5.4) L 02/14/18 07:15 [place] # 0.4 K/mm3 (0.0-0.8) 02/14/18 07:15 Eos # 0.0 K/mm3 (0.0-0.4) 02/14/18 07:15 Baso # 0.0 K/mm3 (0.0-0.1) 02/14/18 07:15 Add Manual Diff Complete 02/13/18 06:04 Total Counted 100 02/13/18 06:04 Seg Neutrophils % 89.6 % (40.0-70.0) H 02/14/18 07:15 Seg Neuts % (Manual) 83.0 % (40.0-70.0) H 02/13/18 06:04 Band Neutrophils % 14.0 % 02/13/18 06:04 Lymphocytes % (Manual) 2.0 % (13.4-35.0) L 02/13/18 06:04 Reactive Lymphs % (Man) 0 % 02/13/18 06:04 Monocytes % (Manual) 1.0 % (0.0-7.3) 02/13/18 06:04 Eosinophils % (Manual) 0 % (0.0-4.3) 02/13/18 06:04 Basophils % (Manual) 0 % (0.0-1.8) 02/13/18 06:04 Metamyelocytes % 0 % 02/13/18 06:04 Myelocytes % 0 % 02/13/18 06:04 Promyelocytes % 0 % 02/13/18 06:04 Blast Cells % 0 % 02/13/18 06:04 Nucleated RBC % Not Reportable 02/13/18 06:04 Seg Neutrophils # 6.9 K/mm3 (1.8-7.7) 02/14/18 07:15 Seg Neutrophils # Man 6.1 K/mm3 (1.8-7.7) 02/13/18 06:04 Band Neutrophils # 1.0 K/mm3 02/13/18 06:04 Lymphocytes # (Manual) 0.1 K/mm3 (1.2-5.4) L 02/13/18 06:04 Abs React Lymphs (Man) 0.0 K/mm3 02/13/18 06:04 Monocytes # (Manual) 0.1 K/mm3 (0.0-0.8) 02/13/18 06:04 Eosinophils # (Manual) 0.0 K/mm3 (0.0-0.4) 02/13/18 06:04 Basophils # (Manual) 0.0 K/mm3 (0.0-0.1) 02/13/18 06:04 Metamyelocytes # 0.0 K/mm3 02/13/18 06:04 Myelocytes # 0.0 K/mm3 02/13/18 06:04 Promyelocytes # 0.0 K/mm3 02/13/18 06:04 Blast Cells # 0.0 K/mm3 02/13/18 06:04 WBC Morphology Not Reportable 02/13/18 06:04 Hypersegmented Neuts Not Reportable 02/13/18 06:04 Hyposegmented Neuts Not Reportable 02/13/18 06:04 Hypogranular Neuts Not Reportable 02/13/18 06:04 Smudge Cells Not Reportable 02/13/18 06:04 Toxic Granulation Not Reportable 02/13/18 06:04 Toxic Vacuolation Not Reportable 02/13/18 06:04 Dohle Bodies Not Reportable 02/13/18 06:04 Pelger-Huet Anomaly Not Reportable 02/13/18 06:04 Chris Rods Not Reportable 02/13/18 06:04 Platelet Estimate Not Reportable 02/13/18 06:04 Clumped Platelets Not Reportable 02/13/18 06:04 Plt Clumps, EDTA Not Reportable 02/13/18 06:04 Large Platelets Not Reportable 02/13/18 06:04 Giant Platelets Not Reportable 02/13/18 06:04 Platelet Satelliting Not Reportable 02/13/18 06:04 Plt Morphology Comment Not Reportable 02/13/18 06:04 RBC Morphology Not Reportable 02/13/18 06:04 Dimorphic RBCs Not Reportable 02/13/18 06:04 Polychromasia Not Reportable 02/13/18 06:04 Hypochromasia Not Reportable 02/13/18 06:04 Poikilocytosis Few 02/13/18 06:04 Anisocytosis Not Reportable 02/13/18 06:04 Microcytosis Not Reportable 02/13/18 06:04 Macrocytosis Not Reportable 02/13/18 06:04 Spherocytes Not Reportable 02/13/18 06:04 Pappenheimer Bodies Not Reportable 02/13/18 06:04 Sickle Cells Not Reportable 02/13/18 06:04 Target Cells Not Reportable 02/13/18 06:04 Tear Drop Cells Not Reportable 02/13/18 06:04 Ovalocytes Not Reportable 02/13/18 06:04 Helmet Cells Not Reportable 02/13/18 06:04 Johnson-Powell Bodies Not Reportable 02/13/18 06:04 [place] Rings Not Reportable 02/13/18 06:04 Todd Cells Not Reportable 02/13/18 06:04 Bite Cells Not Reportable 02/13/18 06:04 Crenated Cell Not Reportable 02/13/18 06:04 Elliptocytes Not Reportable 02/13/18 06:04 Acanthocytes (Spur) Not Reportable 02/13/18 06:04 Rouleaux Not Reportable 02/13/18 06:04 Hemoglobin C Crystals Not Reportable 02/13/18 06:04 Schistocytes Not Reportable 02/13/18 06:04 Malaria parasites Not Reportable 02/13/18 06:04 Aly Bodies Not Reportable 02/13/18 06:04 Hem Pathologist Commnt No 02/13/18 06:04 Sodium 134 mmol/L (137-145) L 02/14/18 07:15 Potassium 3.3 mmol/L (3.6-5.0) L 02/14/18 07:15 Chloride 99.3 mmol/L (98-107) 02/14/18 07:15 Carbon Dioxide 21 mmol/L (22-30) L 02/14/18 07:15 Anion Gap 17 mmol/L 02/14/18 07:15 BUN 65 mg/dL (9-20) H 02/14/18 07:15 Creatinine 5.0 mg/dL (0.8-1.5) H 02/14/18 07:15 Estimated GFR 11 ml/min 02/14/18 07:15 BUN/Creatinine Ratio 13 % 02/14/18 07:15 Glucose 109 mg/dL (75-100) H 02/14/18 07:15 Calcium 7.8 mg/dL (8.4-10.2) L 02/14/18 07:15 Magnesium 2.20 mg/dL (1.7-2.3) 02/13/18 06:04 Iron 15 ug/dL (49-181) L 02/14/18 09:02 TIBC 147 mcg/dL (250-450) L 02/14/18 09:02 Ferritin 339.7 ng/mL (13.0-400.0) 02/14/18 09:02 Total Bilirubin 0.70 mg/dL (0.1-1.2) 02/13/18 06:04 Direct Bilirubin 0.5 mg/dL (0-0.2) H 02/13/18 06:04 Indirect Bilirubin 0.3 mg/dL 02/13/18 06:04 AST 289 units/L (5-40) H 02/13/18 06:04 ALT 65 units/L (7-56) H 02/13/18 06:04 Alkaline Phosphatase 86 units/L (35-129) 02/13/18 06:04 Total Creatine Kinase 2421 units/L (55-170) H 02/14/18 07:15 CK-MB (CK-2) 13.5 ng/mL (0.0-4.0) H 02/13/18 12:01 CK-MB (CK-2) Rel Index 0.2 (0-4) 02/13/18 12:01 Troponin T 0.033 ng/mL (0.00-0.029) H 02/13/18 12:01 Total Protein 6.2 g/dL (6.3-8.2) L 02/13/18 06:04 Albumin 2.8 g/dL (3.9-5) L 02/13/18 06:04 Albumin/Globulin Ratio 0.8 % 02/13/18 06:04 Triglycerides 157 mg/dL (2-149) H 02/13/18 06:04 Cholesterol 103 mg/dL (50-199) 02/13/18 06:04 LDL Cholesterol Direct 41 mg/dL (50-130) L 02/13/18 06:04 HDL Cholesterol 10 mg/dL (40-59) L 02/13/18 06:04 Cholesterol/HDL Ratio 10.30 % 02/13/18 06:04 Vitamin B12 1635 pg/mL (211-911) H 02/14/18 09:02 Folate 3.32 ng/mL (7.3-26.0) L 02/14/18 09:02 Urine Color Nayeli (Yellow) 02/12/18 22:14 Urine Turbidity Turbid (Clear) 02/12/18 22:14 Urine pH 5.0 (5.0-7.0) 02/12/18 22:14 Ur Specific [place] 1.008 (1.003-1.030) 02/12/18 22:14 Urine Protein 100 mg/dl mg/dL (Negative) 02/12/18 22:14 Urine Glucose (UA) Neg mg/dL (Negative) 02/12/18 22:14 Urine Ketones Neg mg/dL (Negative) 02/12/18 22:14 Urine Blood Lg (Negative) 02/12/18 22:14 Urine Nitrite Neg (Negative) 02/12/18 22:14 Urine Bilirubin Neg (Negative) 02/12/18 22:14 Urine Urobilinogen < 2.0 mg/dL (<2.0) 02/12/18 22:14 Ur Leukocyte Esterase Lg (Negative) 02/12/18 22:14 Urine WBC (Auto) > 182.0 /HPF (0.0-6.0) H 02/12/18 22:14 Urine RBC (Auto) 12.0 /HPF (0.0-6.0) 02/12/18 22:14 Urine Bacteria (Auto) 2+ /HPF (Negative) 02/12/18 22:14 Urine WBC Clumps 3+ /HPF 02/12/18 22:14
--- NOTE | 2018-02-14 15:06 | Query- Renal Failure ---
Dear ___Sapna Date:____02/14/18 Crane Hooker/CDS:____luis Phone#:___[phone] Exercise your independent professional judgment when responding to query. Questions asked do not imply a particular answer is desired or expected. We greatly appreciate your clarification on this issue. Clinical Documentation States: 77-year-old male with past medical history significant for hypertension, atrial fibrillation, CKD presented to the emergency department for the complaints of fall. Patient said his legs gave up and he fell on the ground and stayed there 45 minutes. Recurrent fall - Physical therapy - Manage underlying cause acute on chronic kidney disease - Secondary to hypotension, rhabdomyolysis - Nephrology is following - Patient has AVF created, and will assess for the need of dialysis. He is not started on dialysis yet Hypotension - On IV fluids - We will monitor Rhabdomyolysis Clinical Findings Show: 02/12/18 02/14/18 Creatinine 5.6 5.0 Bun/Cr ratio 11 13 Please clarify if you mean: Acute Renal Failure with or due to: [ ] Tubular Necrosis [ ] Medullary Necrosis [x ] Vasomotor Nephropathy [ ] Shock Kidney [ ] Tubular Nephrosis [ ] Renal Tubular Stasis [ ] Cortical Necrosis [ ] Acute Renal Failure (unspecified) [ ] Lower Tubular Nephrosis [ ] Other: [ ] Not Applicable Present on Admission: [x ] Yes (Y) [ ] Clinically undeterminable (W) [ ] No (N) Please also document response in your Progress Notes and/or Discharge Summary and indicate if the condition was present on admission. MTDD
[2018-02-14] MEDS: FOLVITE PO SCH (17:33)
[2018-02-14] MEDS: ROCEPHIN/NS 1 GM/50 ML 1 GM/50 ML BAG IV SCH (21:14)
[2018-02-14] MEDS: PRAVACHOL PO SCH (21:14)
--- NOTE | 2018-02-15 01:26 | Consultation ---
REFFERING PHYSICIAN: Dr. Alejo. REASON FOR CONSULTATION: Thrombocytopenia. HISTORY OF PRESENT ILLNESS: I saw the patient, a 77-year-old male in the medical floor. The patient has a history of chronic renal insufficiency, not currently on hemodialysis; hypertension, GERD, and previous a.fib, came to the hospital because of generalized weakness and 2 episodes of fall. He lives with his family members. He says his knees gave out and he fell down. No history of head injury or loss of consciousness. He has bruises on the face. No headache, no chest pain, no shortness of breath, no abdominal pain, no nausea, no vomiting, no diarrhea, no dysuria. No seizures; however, weakness and fall was present. No changes in urinary issues. In 12/2017, AV fistula was placed in preparation for dialysis. The patient denies history of excessive Tylenol intake or known liver disease. He has a Sparks catheter due to urinary retention issues. REVIEW OF SYSTEMS: Weakness present, cough present, fall present bruises on the face present. Others as above. PAST MEDICAL HISTORY: Hypertension, CKD stage 5, arthritis and a.fib. ALLERGIES: No known drug allergy. HOME MEDICATIONS: Include aspirin, simvastatin, amiodarone, nifedipine, oxybutynin. PAST SURGICAL HISTORY: Knee surgery, left arm AV fistula. SOCIAL HISTORY: Nonsmoker. PHYSICAL EXAMINATION: VITAL SIGNS: Temperature 98.8, pulse 53, respirations 20, and BP 97/48. HEENT: Mild pallor. No icterus. No neck lymph nodes. Bruise on face. HEART: S1 and S2. LUNGS: Clear to auscultation. ABDOMEN: Soft. EXTREMITIES: No calf tenderness. NEUROLOGIC: Awake, answers simple questions. LABORATORY DATA: White cells 7.7, hemoglobin 10.3, MCV 98, platelet 67, and predominant neutrophils. PTT 24, PT 15, potassium 3.3, creatinine 5, calcium 7.8, bilirubin 0.7, serum iron 15, TIBC 147, ferritin 339, B12 of 1635, and folate 3.3. RADIOLOGY DATA: Head CT was done. ASSESSMENT AND PLAN: 1. Thrombocytopenia. The patient's LFTs are normal. This may have a role. Alcohol history, details unclear. We will investigate for the reversible cause of thrombocytopenia. The patient's folate level is low. We will to look into replacement. 2. Mild anemia with MCV elevated. This may be secondary to liver disease. 3. Abnormal liver function test. This may be acute or chronic. 4. Chronic kidney disease, stage 5 and there is anticipatory plan for hemodialysis, AV fistula was placed. 5. History of fall. 6. History of hypertension. 7. History of previous atrial fibrillation. 8. Rhabdomyolysis. 9. Hypotension. I will follow the patient during inpatient stay. We will follow the trend of platelets. JOB# [id number] NM/NTS
[2018-02-15 06:36] LABS: Basophils % (Auto) 0.2 % (0.0-1.8); Eosinophils # (Auto) 0.1 K/mm3 (0.0-0.4); Eosinophils % (Auto) 0.7 % (0.0-4.3); Hematocrit 29.5 % (35.5-45.6); Lymphocytes # (Auto) 0.4 K/mm3 (1.2-5.4); Lymphocytes % (Auto) 5.1 % (13.4-35.0); Mean Corpuscular HGB Conc 34 % (32-34); Mean Corpuscular Hemoglobin 33 pg (28-32); Mean Corpuscular Volume 98 fl (84-94); Monocytes # (Auto) 0.4 K/mm3 (0.0-0.8); Monocytes % (Auto) 5.1 % (0.0-7.3); Red Blood Count 3.01 M/mm3 (3.65-5.03); Red Cell Distribution Width 16.8 % (13.2-15.2)
[2018-02-15 07:03] LABS: Platelet Count 70 K/mm3 (140-440)
--- NOTE | 2018-02-15 07:59 | Hem/Onc Progress Note ---
Assessment and Plan 1. Thrombocytopenia. The patient's LFTs are normal. This may have a role. Alcohol history, details unclear. We will investigate for the reversible cause of thrombocytopenia. The patient's folate level is low - replacement. 2. Mild anemia with MCV elevated. This may be secondary to liver disease or folate def. 3. Abnormal liver function test. This may be acute or chronic. 4. Chronic kidney disease, stage 5 and there is anticipatory plan for hemodialysis, AV fistula was placed. 5. History of fall. 6. History of hypertension. 7. History of previous atrial fibrillation. 8. Rhabdomyolysis. 9. Hypotension. US abdo ordered no bleeding apart from facial bruises - Patient Problems (1) Thrombocytopenia Current Visit: Yes Status: Acute Subjective Date of service: 02/15/18 Principal diagnosis: low plt Interval history: pt says he is doing better walked yesterday. US abdo ordered for low plt - liver spleen size Objective - Constitutional Vitals: Last Vital Signs Temp 98.8 F 02/15/18 05:52 Pulse 58 L 02/15/18 05:52 Resp 18 02/15/18 05:52 BP 115/61 02/15/18 05:52 Pulse Ox 94 02/15/18 05:52 Pain Intensity (0-10): denies any pain General appearance: no acute distress Performance status: 3-limited selfcare - EENT Eyes: PERRL ENT: clear oral mucosa Lymph node exam: negative cervical, negative supraclavicular - Neck Neck: supple - Respiratory Respiratory effort: Positive: normal Respiratory: bilateral: CTA - Cardiovascular Heart Sounds: Present: S1 & S2 Extremities: No edema - Gastrointestinal General gastrointestinal: Present: soft, non-tender Rectal Exam: deferred - Genitourinary Male genitourinary: Present: deferred - Integumentary Integumentary: warm - Musculoskeletal Musculoskeletal: strength equal bilaterally - Neurologic Neurologic: moves all extremities - Labs Lab Results: Laboratory Results - last 24 hr 02/14/18 02/14/18 02/14/18 07:15 07:15 09:02 WBC 7.7 RBC 3.04 L Hgb 10.3 L Hct 29.8 L MCV 98 H MCH 34 H MCHC 35 H RDW 16.0 H Plt Count 67 L Lymph % (Auto) 4.8 L [place] % (Auto) 5.2 Eos % (Auto) 0.3 Baso % (Auto) 0.1 Lymph # 0.4 L [place] # 0.4 Eos # 0.0 Baso # 0.0 Seg Neutrophils % 89.6 H Seg Neutrophils # 6.9 Sodium 134 L Potassium 3.3 L Chloride 99.3 Carbon Dioxide 21 L Anion Gap 17 BUN 65 H Creatinine 5.0 H Estimated GFR 11 BUN/Creatinine Ratio 13 Glucose 109 H Calcium 7.8 L Iron 15 L TIBC 147 L Ferritin Total Creatine Kinase 2421 H Vitamin B12 Folate 02/14/18 02/14/18 02/14/18 09:02 09:02 09:02 WBC RBC Hgb Hct MCV MCH MCHC RDW Plt Count Lymph % (Auto) [place] % (Auto) Eos % (Auto) Baso % (Auto) Lymph # [place] # Eos # Baso # Seg Neutrophils % Seg Neutrophils # Sodium Potassium Chloride Carbon Dioxide Anion Gap BUN Creatinine Estimated GFR BUN/Creatinine Ratio Glucose Calcium Iron TIBC Ferritin 339.7 Total Creatine Kinase Vitamin B12 1635 H Folate 3.32 L 02/15/18 05:43 WBC 7.4 RBC 3.01 L Hgb 10.0 L Hct 29.5 L MCV 98 H MCH 33 H MCHC 34 RDW 16.8 H Plt Count 70 L Lymph % (Auto) 5.1 L [place] % (Auto) 5.1 Eos % (Auto) 0.7 Baso % (Auto) 0.2 Lymph # 0.4 L [place] # 0.4 Eos # 0.1 Baso # 0.0 Seg Neutrophils % 88.9 H Seg Neutrophils # 6.6 Sodium Potassium Chloride Carbon Dioxide Anion Gap BUN Creatinine Estimated GFR BUN/Creatinine Ratio Glucose Calcium Iron TIBC Ferritin Total Creatine Kinase Vitamin B12 Folate
--- NOTE | 2018-02-15 08:47 | Progress Note ---
Assessment and Plan - Patient Problems (1) Acute kidney injury Current Visit: Yes Status: Acute Plan to address problem: Acute tubular necrosis secondary to rhabdomyolysis/hypotension. Kidney function improving. Follow up electrolytes and kidney function. (2) Chronic kidney disease, stage V Current Visit: Yes Status: Acute Plan to address problem: Will need to start making arrangements for chronic dialysis. With kidney function improving, this can be done as an outpatient with primary transport conductor Dr. Billy. (3) Rhabdomyolysis Current Visit: Yes Status: Acute Plan to address problem: CPK improving. Continue volume resuscitation and follow-up result (4) Skin abrasion Current Visit: Yes Status: Acute Plan to address problem: History of falls at home. Physical therapy/Therapy evaluate and treat. Consider placement at subacute rehabilitation on DC (5) Thrombocytopenia Current Visit: Yes Status: Acute Plan to address problem: Follow-up platelet count. Consider hematology evaluation (6) UTI (urinary tract infection) Current Visit: Yes Status: Acute Plan to address problem: Continue antibiotics. Follow up urine culture. (7) Hypotension Current Visit: Yes Status: Acute Plan to address problem: Continue volume repletion. Avoid hypotensive medications. Follow blood pressure (8) Hypokalemia Current Visit: Yes Status: Acute Plan to address problem: Supplement potassium and follow-up level Subjective Date of service: 02/15/18 Principal diagnosis: low plt Interval history: Patient seen lying in bed. He has no complaints. I feel better today. I am not as shaky as I was yesterday Objective - Exam Narrative Exam: Elderly male lying in bed in no acute distress HEENT: Bruises on his face, pink oral mucous membrane Neck: Supple, no venous distention CVS: S1S2 RRR with no murmur, rub or gallop Chest: Clear to auscultation Abdomen: Protuberant, soft, nontender, no organomegaly, bowel sounds are present Extremities: No edema Neuro: Awake, alert no focal deficits - Vital Signs Vital signs: Vital Signs - 12hr 02/15/18 02/15/18 00:44 05:52 Temperature 99.0 F 98.8 F Pulse Rate 56 L 58 L Respiratory 20 18 Rate Blood Pressure 117/59 115/61 O2 Sat by Pulse 92 94 Oximetry - Lab 02/15/18 05:43 02/15/18 05:43 Most recent lab results Calcium 7.8 mg/dL (8.4-10.2) L 02/14/18 07:15 Magnesium 2.20 mg/dL (1.7-2.3) 02/13/18 06:04
[2018-02-15 09:17] LABS: Albumin 2.5 g/dL (3.9-5); Calcium 7.7 mg/dL (8.4-10.2)
[2018-02-15] MEDS: DITROPAN PO SCH ×3 (12:11→21:28)
[2018-02-15] MEDS: CORDARONE PO SCH (13:18)
[2018-02-15] MEDS: PROSCAR PO SCH (13:18)
[2018-02-15] MEDS: ASPIRIN PO SCH (13:19)
[2018-02-15] MEDS: PROTONIX PO SCH (13:19)
[2018-02-15] MEDS: FOLVITE PO SCH (13:19)
--- NOTE | 2018-02-15 17:49 | Progress Note ---
Assessment and Plan Assessment and plan: 77-year-old male with past medical history significant for hypertension, atrial fibrillation, CKD presented to the emergency department for the complaints of fall. Patient said his legs gave up and he fell on the ground and stayed there 45 minutes. Recurrent fall - Physical therapy - Manage underlying cause acute on chronic kidney disease - Secondary to hypotension, rhabdomyolysis - Nephrology is following - Patient has AVF created, and will assess for the need of dialysis. He is not started on dialysis yet, but per nephrology will need it. Hypokalemia -Replace Hyponatremia -Monitor Hypotension - On IV fluids - We will monitor Rhabdomyolysis - CK is trending down - Continue IV fluids A. fib - Patient is on amiodarone, rate controlled - Nontender cognition because of recurrent fall UTI - on ceftriaxone Thrombocytopenia - Hematology/Oncology consulted and input noted SKIN Abrasion -History of falls at home, PT/OT , AWAITING PLACEMENT DVT prophylaxis - on SCDs Disposition - Per nephrology History Interval history: Patient seen and examined today, no new complaints. sitting up today. Hospitalist Physical - Physical exam Narrative exam: Not in cardiopulmonary distress. The patient appeared well nourished and normally developed. Vital signs as documented. Head exam is unremarkable. No scleral icterus . Neck is without jugular venous distension, thyromegaly, or carotid bruits. Lungs are clear to auscultation. Cardiac exam reveals regular rate and Rhythm. Abdominal exam reveals normal bowel sounds, no masses, no organomegaly and no aortic enlargement. Extremities are nonedematous and both femoral and pedal pulses are normal. 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 No focal weakness. Skin: Brusing facial, bridge of nose - Constitutional Vitals: Temp Pulse Resp BP Pulse Ox 98.3 F 53 L 20 110/54 93 02/15/18 12:18 02/15/18 12:18 02/15/18 12:18 02/15/18 12:18 02/15/18 12:18 Results - Labs CBC & Chem 7: 02/15/18 05:43 02/15/18 05:43 Labs: Laboratory Last Values WBC 7.4 K/mm3 (4.5-11.0) 02/15/18 05:43 RBC 3.01 M/mm3 (3.65-5.03) L 02/15/18 05:43 Hgb 10.0 gm/dl (11.8-15.2) L 02/15/18 05:43 Hct 29.5 % (35.5-45.6) L 02/15/18 05:43 MCV 98 fl (84-94) H 02/15/18 05:43 MCH 33 pg (28-32) H 02/15/18 05:43 MCHC 34 % (32-34) 02/15/18 05:43 RDW 16.8 % (13.2-15.2) H 02/15/18 05:43 Plt Count 70 K/mm3 (140-440) L 02/15/18 05:43 Lymph % (Auto) 5.1 % (13.4-35.0) L 02/15/18 05:43 [place] % (Auto) 5.1 % (0.0-7.3) 02/15/18 05:43 Eos % (Auto) 0.7 % (0.0-4.3) 02/15/18 05:43 Baso % (Auto) 0.2 % (0.0-1.8) 02/15/18 05:43 Lymph # 0.4 K/mm3 (1.2-5.4) L 02/15/18 05:43 [place] # 0.4 K/mm3 (0.0-0.8) 02/15/18 05:43 Eos # 0.1 K/mm3 (0.0-0.4) 02/15/18 05:43 Baso # 0.0 K/mm3 (0.0-0.1) 02/15/18 05:43 Add Manual Diff Complete 02/13/18 06:04 Total Counted 100 02/13/18 06:04 Seg Neutrophils % 88.9 % (40.0-70.0) H 02/15/18 05:43 Seg Neuts % (Manual) 83.0 % (40.0-70.0) H 02/13/18 06:04 Band Neutrophils % 14.0 % 02/13/18 06:04 Lymphocytes % (Manual) 2.0 % (13.4-35.0) L 02/13/18 06:04 Reactive Lymphs % (Man) 0 % 02/13/18 06:04 Monocytes % (Manual) 1.0 % (0.0-7.3) 02/13/18 06:04 Eosinophils % (Manual) 0 % (0.0-4.3) 02/13/18 06:04 Basophils % (Manual) 0 % (0.0-1.8) 02/13/18 06:04 Metamyelocytes % 0 % 02/13/18 06:04 Myelocytes % 0 % 02/13/18 06:04 Promyelocytes % 0 % 02/13/18 06:04 Blast Cells % 0 % 02/13/18 06:04 Nucleated RBC % Not Reportable 02/13/18 06:04 Seg Neutrophils # 6.6 K/mm3 (1.8-7.7) 02/15/18 05:43 Seg Neutrophils # Man 6.1 K/mm3 (1.8-7.7) 02/13/18 06:04 Band Neutrophils # 1.0 K/mm3 02/13/18 06:04 Lymphocytes # (Manual) 0.1 K/mm3 (1.2-5.4) L 02/13/18 06:04 Abs React Lymphs (Man) 0.0 K/mm3 02/13/18 06:04 Monocytes # (Manual) 0.1 K/mm3 (0.0-0.8) 02/13/18 06:04 Eosinophils # (Manual) 0.0 K/mm3 (0.0-0.4) 02/13/18 06:04 Basophils # (Manual) 0.0 K/mm3 (0.0-0.1) 02/13/18 06:04 Metamyelocytes # 0.0 K/mm3 02/13/18 06:04 Myelocytes # 0.0 K/mm3 02/13/18 06:04 Promyelocytes # 0.0 K/mm3 02/13/18 06:04 Blast Cells # 0.0 K/mm3 02/13/18 06:04 WBC Morphology Not Reportable 02/13/18 06:04 Hypersegmented Neuts Not Reportable 02/13/18 06:04 Hyposegmented Neuts Not Reportable 02/13/18 06:04 Hypogranular Neuts Not Reportable 02/13/18 06:04 Smudge Cells Not Reportable 02/13/18 06:04 Toxic Granulation Not Reportable 02/13/18 06:04 Toxic Vacuolation Not Reportable 02/13/18 06:04 Dohle Bodies Not Reportable 02/13/18 06:04 Pelger-Huet Anomaly Not Reportable 02/13/18 06:04 Chris Rods Not Reportable 02/13/18 06:04 Platelet Estimate Not Reportable 02/13/18 06:04 Clumped Platelets Not Reportable 02/13/18 06:04 Plt Clumps, EDTA Not Reportable 02/13/18 06:04 Large Platelets Not Reportable 02/13/18 06:04 Giant Platelets Not Reportable 02/13/18 06:04 Platelet Satelliting Not Reportable 02/13/18 06:04 Plt Morphology Comment Not Reportable 02/13/18 06:04 RBC Morphology Not Reportable 02/13/18 06:04 Dimorphic RBCs Not Reportable 02/13/18 06:04 Polychromasia Not Reportable 02/13/18 06:04 Hypochromasia Not Reportable 02/13/18 06:04 Poikilocytosis Few 02/13/18 06:04 Anisocytosis Not Reportable 02/13/18 06:04 Microcytosis Not Reportable 02/13/18 06:04 Macrocytosis Not Reportable 02/13/18 06:04 Spherocytes Not Reportable 02/13/18 06:04 Pappenheimer Bodies Not Reportable 02/13/18 06:04 Sickle Cells Not Reportable 02/13/18 06:04 Target Cells Not Reportable 02/13/18 06:04 Tear Drop Cells Not Reportable 02/13/18 06:04 Ovalocytes Not Reportable 02/13/18 06:04 Helmet Cells Not Reportable 02/13/18 06:04 [place] Bodies Not Reportable 02/13/18 06:04 [place] Rings Not Reportable 02/13/18 06:04 [place] Cells Not Reportable 02/13/18 06:04 Bite Cells Not Reportable 02/13/18 06:04 Crenated Cell Not Reportable 02/13/18 06:04 Elliptocytes Not Reportable 02/13/18 06:04 Acanthocytes (Spur) Not Reportable 02/13/18 06:04 Rouleaux Not Reportable 02/13/18 06:04 Hemoglobin C Crystals Not Reportable 02/13/18 06:04 Schistocytes Not Reportable 02/13/18 06:04 Malaria parasites Not Reportable 02/13/18 06:04 Aly Bodies Not Reportable 02/13/18 06:04 Hem Pathologist Commnt No 02/13/18 06:04 Sodium 131 mmol/L (137-145) L 02/15/18 05:43 Potassium 3.3 mmol/L (3.6-5.0) L 02/15/18 05:43 Chloride 98.7 mmol/L (98-107) 02/15/18 05:43 Carbon Dioxide 19 mmol/L (22-30) L 02/15/18 05:43 Anion Gap 17 mmol/L 02/15/18 05:43 BUN 61 mg/dL (9-20) H 02/15/18 05:43 Creatinine 4.5 mg/dL (0.8-1.5) H 02/15/18 05:43 Estimated GFR 13 ml/min 02/15/18 05:43 BUN/Creatinine Ratio 14 % 02/15/18 05:43 Glucose 98 mg/dL (75-100) 02/15/18 05:43 Calcium 7.7 mg/dL (8.4-10.2) L 02/15/18 05:43 Magnesium 2.20 mg/dL (1.7-2.3) 02/13/18 06:04 Iron 15 ug/dL (49-181) L 02/14/18 09:02 TIBC 147 mcg/dL (250-450) L 02/14/18 09:02 Ferritin 339.7 ng/mL (13.0-400.0) 02/14/18 09:02 Total Bilirubin 1.60 mg/dL (0.1-1.2) H 02/15/18 05:43 Direct Bilirubin 0.5 mg/dL (0-0.2) H 02/13/18 06:04 Indirect Bilirubin 0.3 mg/dL 02/13/18 06:04 AST 293 units/L (5-40) H 02/15/18 05:43 ALT 155 units/L (7-56) H 02/15/18 05:43 Alkaline Phosphatase 334 units/L (35-129) H 02/15/18 05:43 Total Creatine Kinase 1356 units/L (55-170) H 02/15/18 05:43 CK-MB (CK-2) 13.5 ng/mL (0.0-4.0) H 02/13/18 12:01 CK-MB (CK-2) Rel Index 0.2 (0-4) 02/13/18 12:01 Troponin T 0.033 ng/mL (0.00-0.029) H 02/13/18 12:01 Total Protein 5.4 g/dL (6.3-8.2) L 02/15/18 05:43 Albumin 2.5 g/dL (3.9-5) L 02/15/18 05:43 Albumin/Globulin Ratio 0.9 % 02/15/18 05:43 Triglycerides 157 mg/dL (2-149) H 02/13/18 06:04 Cholesterol 103 mg/dL (50-199) 02/13/18 06:04 LDL Cholesterol Direct 41 mg/dL (50-130) L 02/13/18 06:04 HDL Cholesterol 10 mg/dL (40-59) L 02/13/18 06:04 Cholesterol/HDL Ratio 10.30 % 02/13/18 06:04 Vitamin B12 1635 pg/mL (211-911) H 02/14/18 09:02 Folate 3.32 ng/mL (7.3-26.0) L 02/14/18 09:02 Urine Color [place] (Yellow) 02/12/18 22:14 Urine Turbidity Turbid (Clear) 02/12/18 22:14 Urine pH 5.0 (5.0-7.0) 02/12/18 22:14 Ur Specific [place] 1.008 (1.003-1.030) 02/12/18 22:14 Urine Protein 100 mg/dl mg/dL (Negative) 02/12/18 22:14 Urine Glucose (UA) Neg mg/dL (Negative) 02/12/18 22:14 Urine Ketones Neg mg/dL (Negative) 02/12/18 22:14 Urine Blood Lg (Negative) 02/12/18 22:14 Urine Nitrite Neg (Negative) 02/12/18 22:14 Urine Bilirubin Neg (Negative) 02/12/18 22:14 Urine Urobilinogen < 2.0 mg/dL (<2.0) 02/12/18 22:14 Ur Leukocyte Esterase Lg (Negative) 02/12/18 22:14 Urine WBC (Auto) > 182.0 /HPF (0.0-6.0) H 02/12/18 22:14 Urine RBC (Auto) 12.0 /HPF (0.0-6.0) 02/12/18 22:14 Urine Bacteria (Auto) 2+ /HPF (Negative) 02/12/18 22:14 Urine WBC Clumps 3+ /HPF 02/12/18 22:14
[2018-02-15] MEDS: PRAVACHOL PO SCH (21:28)
[2018-02-15] MEDS: ROCEPHIN/NS 1 GM/50 ML 1 GM/50 ML BAG IV SCH (21:28)
[2018-02-16 06:15] LABS: Hemoglobin 9.6 gm/dl (11.8-15.2); Mean Corpuscular HGB Conc 34 % (32-34); Mean Corpuscular Hemoglobin 34 pg (28-32); Mean Corpuscular Volume 98 fl (84-94); Red Blood Count 2.84 M/mm3 (3.65-5.03); Red Cell Distribution Width 16.2 % (13.2-15.2)
[2018-02-16 06:22] LABS: Platelet Count 88 K/mm3 (140-440)
[2018-02-16 06:31] LABS: Albumin 2.3 g/dL (3.9-5); Calcium 7.5 mg/dL (8.4-10.2)
[2018-02-16] MEDS: NACL 0.9% 1000 ML 1,000 ML IV SCH (06:36)
--- NOTE | 2018-02-16 08:19 | Ultrasound Report ---
ULTRASOUND ABDOMEN COMPLETE: TECHNIQUE: Transabdominal ultrasound with color Doppler interrogation. HISTORY: for liver spleen size, thrombocytopenia. COMPARISON: none. FINDINGS: LIVER: The liver is normal size, contour and echotexture. No parenchymal disease, mass or surface nodularity is identified. BILIARY SYSTEM: There is moderate non-shadowing debris consistent with sludge in the gallbladder. The gallbladder is normal size, contour and wall thickness. The CBD measures 2 mm. PANCREAS: Normal. SPLEEN: The spleen is normal size and echogenicity measuring 10.4 x 4.4 cm. KIDNEYS: Both kidneys measure approximately 11 cm in length. The kidneys are slightly echogenic bilaterally consistent with nonspecific renal parenchymal disease. A 1.6 cm cyst is noted in the superior right renal sinus. No evidence for mass, calculus or hydronephrosis. AORTA/IVC: Obscured. ASCITES: None. IMPRESSION: Unremarkable liver and spleen. Sludge in the gallbladder. No evidence for acute cholecystitis. Echogenic kidneys consistent with nonspecific renal parenchymal disease. Right renal cyst.
[2018-02-16] MEDS: ASPIRIN PO SCH (09:14)
[2018-02-16] MEDS: DITROPAN PO SCH ×2 (09:14→13:44)
[2018-02-16] MEDS: CORDARONE PO SCH (09:14)
[2018-02-16] MEDS: PROTONIX PO SCH (09:14)
[2018-02-16] MEDS: PROSCAR PO SCH (09:14)
[2018-02-16] MEDS: FOLVITE PO SCH (09:17)
--- NOTE | 2018-02-16 10:56 | Discharge Summary ---
Providers - Providers Date of Admission: 02/13/18 03:30 Attending physician: MICHAEL JACKSON MD 02/13/18 06:30 Physical Therapy Evaluation and Treat [CONS] Routine Comment: Reason For Exam: weakness of the limbs 02/13/18 06:37 Consult to Physician [CONS] Routine Comment: Consulting Provider: EBONY MULLINS Physician Instructions: Reason For Exam: CKD 02/14/18 08:33 Consult to Physician [CONS] Routine Comment: Consulting Provider: CATRINA BUNN Physician Instructions: Reason For Exam: thrombocytopenia 02/14/18 15:39 Consult to Wound/ET Nurse [CONS] Routine Reason For Exam: wound eval Primary care physician: [employer] Hospitalization Condition: Stable Hospital course: 77-year-old male with past medical history significant for hypertension, atrial fibrillation, CKD presented to the emergency department for the complaints of fall. Patient said his legs gave up and he fell on the ground and stayed there 45 minutes. Recurrent fall - Physical therapy - Manage underlying cause acute on chronic kidney disease - Secondary to hypotension, rhabdomyolysis - Nephrology is following - Patient has AVF created, and will assess for the need of dialysis. He is not started on dialysis yet, but per nephrology will need it. Hypokalemia -Replace Hyponatremia -Monitor Hypotension - On IV fluids - We will monitor Rhabdomyolysis - CK is trending down - Continue IV fluids A. fib - Patient is on amiodarone, rate controlled - Nontender cognition because of recurrent fall UTI - on ceftriaxone Thrombocytopenia - Hematology/Oncology consulted and input noted SKIN Abrasion -History of falls at home, PT/OT , AWAITING PLACEMENT DVT prophylaxis - on SCDs Disposition - Per nephrology Disposition: DC- TO HOME OR SELFCARE Time spent for discharge: 35 mins Core Measure Documentation - Palliative Care Palliative Care/ Comfort Measures: Not Applicable - Core Measures Any of the following diagnoses?: none - VTE Discharge Requirements Deep Vein Thrombosis/Pulmonary Embolism Present on Admission: No Exam - Constitutional Vitals: Temp Pulse Resp BP Pulse Ox 99.1 F 53 L 18 122/62 93 02/16/18 06:18 02/16/18 06:18 02/16/18 06:18 02/16/18 06:18 02/16/18 06:18 Plan Activity: advance as tolerated, fall precautions Diet: renal Special Instructions: record daily BP diary Follow up with: PRIMARY MD MARIELENA [Primary Care Provider] - 7 Days EBONY MULLINS MD [Staff Physician] - 7 Days Prescriptions: Folic Acid [Folvite] 1 mg PO QDAY #30 tablet
[2018-02-16] MEDS ORDERED: K-DUR PO ONE (11:00)
[2018-02-16 12:27] VITALS: BP 107/50
--- NOTE | 2018-02-16 14:31 | Progress Note ---
Assessment and Plan - Patient Problems (1) Acute kidney injury Current Visit: Yes Status: Acute Plan to address problem: Acute tubular necrosis secondary to rhabdomyolysis/hypotension. Kidney function improving and is close to his baseline now. Follow up electrolytes and kidney function. Patient can be discharged home to follow-up at the outpatient clinic with Dr. Billy. (2) Chronic kidney disease, stage V Current Visit: Yes Status: Acute Plan to address problem: Will need to start making arrangements for chronic dialysis. With kidney function improving, this can be done as an outpatient with primary community health nurse supervisor Dr. Billy. (3) Rhabdomyolysis Current Visit: Yes Status: Acute Plan to address problem: CPK improving. Continue volume resuscitation and follow-up result (4) Skin abrasion Current Visit: Yes Status: Acute Plan to address problem: History of falls at home. Physical therapy/Therapy evaluate and treat. Consider placement at subacute rehabilitation on DC. I encouraged patient to go to rehabilitation (5) Thrombocytopenia Current Visit: Yes Status: Acute Plan to address problem: Follow-up platelet count. Consider hematology evaluation (6) UTI (urinary tract infection) Current Visit: Yes Status: Acute Plan to address problem: Continue antibiotics. Follow up urine culture. (7) Hypotension Current Visit: Yes Status: Acute Plan to address problem: Continue volume repletion. Avoid hypotensive medications. Follow blood pressure (8) Hypokalemia Current Visit: Yes Status: Acute Plan to address problem: Supplement potassium and follow-up level Subjective Date of service: 02/16/18 Principal diagnosis: low plt Interval history: Patient seen lying in bed. He has no complaints. I feel better today. Objective - Exam Narrative Exam: Elderly male lying in bed in no acute distress HEENT: Bruises on his face, pink oral mucous membrane Neck: Supple, no venous distention CVS: S1S2 RRR with no murmur, rub or gallop Chest: Clear to auscultation Abdomen: Protuberant, soft, nontender, no organomegaly, bowel sounds are present Extremities: No edema, dressings over both knees Neuro: Awake, alert no focal deficits - Vital Signs Vital signs: Vital Signs - 12hr 02/16/18 02/16/18 06:18 11:45 Temperature 99.1 F 97.7 F Pulse Rate 53 L 53 L Respiratory 18 20 Rate Blood Pressure 122/62 107/50 O2 Sat by Pulse 93 98 Oximetry - Lab 02/16/18 05:43 02/16/18 05:43 Most recent lab results Calcium 7.5 mg/dL (8.4-10.2) L 02/16/18 05:43 Magnesium 2.20 mg/dL (1.7-2.3) 02/13/18 06:04
--- NOTE | 2018-02-16 18:15 | Hem/Onc Progress Note ---
Assessment and Plan 1. Thrombocytopenia. The patient's LFTs are normal. This may have a role. Alcohol history, details unclear. The patient's folate level is low - replacement. 2. Mild anemia with MCV elevated. This may be secondary to liver disease or folate def. 3. Abnormal liver function test. This may be acute or chronic. 4. Chronic kidney disease, stage 5 and there is anticipatory plan for hemodialysis, AV fistula was placed. 5. History of fall. 6. History of hypertension. 7. History of previous atrial fibrillation. 8. Rhabdomyolysis. 9. Hypotension. US abdo done no bleeding apart from facial bruises d/w daughter 02/16 - Patient Problems (1) Thrombocytopenia Status: Acute Subjective Date of service: 02/16/18 Principal diagnosis: low plt Interval history: pt says he is doing better walked yesterday. US abdo for low plt - liver spleen size - normal d/w daughter reg low plt his plt in 12/2017 were > 150 Objective - Constitutional Vitals: Last Vital Signs Temp 97.7 F 02/16/18 11:45 Pulse 53 L 02/16/18 11:45 Resp 20 02/16/18 11:45 BP 107/50 02/16/18 11:45 Pulse Ox 98 02/16/18 11:45 Pain Intensity (0-10): denies any pain General appearance: no acute distress Performance status: 1-light work, ambulatory - EENT Eyes: PERRL ENT: clear oral mucosa Lymph node exam: negative cervical, negative supraclavicular - Neck Neck: supple - Respiratory Respiratory effort: Positive: normal Respiratory: bilateral: CTA - Cardiovascular Heart Sounds: Present: S1 & S2 Extremities: No edema - Gastrointestinal General gastrointestinal: Present: soft, non-tender Rectal Exam: deferred - Genitourinary Male genitourinary: Present: deferred - Integumentary Integumentary: warm - Musculoskeletal Musculoskeletal: strength equal bilaterally - Neurologic Neurologic: moves all extremities - Psychiatric Psychiatric: appropriate mood/affect - Labs Lab Results: Laboratory Results - last 24 hr 02/16/18 02/16/18 05:43 05:43 WBC 7.5 RBC 2.84 L Hgb 9.6 L Hct 28.0 L MCV 98 H MCH 34 H MCHC 34 RDW 16.2 H Plt Count 88 L Sodium 136 L Potassium 3.4 L Chloride 101.1 Carbon Dioxide 21 L Anion Gap 17 BUN 56 H Creatinine 4.0 H Estimated GFR 15 BUN/Creatinine Ratio 14 Glucose 95 Calcium 7.5 L Total Bilirubin 1.60 H AST 169 H ALT 134 H Alkaline Phosphatase 344 H Total Creatine Kinase 689 H Total Protein 5.2 L Albumin 2.3 L Albumin/Globulin Ratio 0.8
== END 2018-02-16 17:05 | disposition home health service (06) | DRG 689 ==
LOC: ED 19:39 → 3A 02-13 03:30
PROVIDERS: ADMIT Internal Medicine; ATTEND Internal Medicine
DX: N39.0 Urinary tract infection, site not specified (principal); N17.0 Acute kidney failure with tubular necrosis; M62.82 Rhabdomyolysis; N18.5 Chronic kidney disease, stage 5; E87.1 Hypo-osmolality and hyponatremia; I12.0 Hypertensive chronic kidney disease with stage 5 chronic kidney disease or end stage renal disease; I95.1 Orthostatic hypotension; D69.6 Thrombocytopenia, unspecified; K21.9 Gastro-esophageal reflux disease without esophagitis; R94.5 Abnormal results of liver function studies; M19.90 Unspecified osteoarthritis, unspecified site; I48.91 Unspecified atrial fibrillation; E87.6 Hypokalemia; S00.81XA Abrasion of other part of head, initial encounter; W18.39XA Other fall on same level, initial encounter; Z96.651 Presence of right artificial knee joint; Y93.89 Activity, other specified; Y92.098 Other place in other non-institutional residence as the place of occurrence of the external cause; Y99.8 Other external cause status; Z95.828 Presence of other vascular implants and grafts; Z79.82 Long term (current) use of aspirin; Z79.899 Other long term (current) drug therapy
CPT/HCPCS: 36415; 70450; 76700; 80048; 80053; 80061; 80074; 81001; 82550; 82553; 82607; 82728; 82747; 83550; 83735; 84484; 85007; 85025; 85027; 87086; 93005; 93010; 93306; A9270-GY; G8978-GP; G8979-GP; J0696; J7030